=== PATIENT | female | born 1965 | race Caucasian/White ===

== ENCOUNTER 2019-07-09 08:46 | Emergency (ER) | payer MEDICAID ==
[~2019-07-09] VITALS: Ht 154.9 cm; Wt 78.9 kg
[~2019-07-09 08:46] MED LIST: BENA10TA25 PO; METF500T PO; RANI-287 PO; SIMV10TA1 PO
[2019-07-09 09:03] VITALS: BP 119/71
--- NOTE | 2019-07-09 09:13 | NUR ---
Note adileneone in EDM - 07/09/19 at 0915 by [email or web address] C/O R SIDED CHEST PAIN, RADIATING TO UPPER BACK, 06/07 X1 DAY. PT STATES HER SON GAVE HER A HUG YESTERDAY AND THINKS HE SQUEEZZED HER TOO HARD DUE TO HER OSTEOPOROSIS. DENIES N/V. PT NON-DIAPHORETIC. PT ALERT AND AWAKE. VS STABLE. AMBULATES WITH STEADY GAIT. BED IS DOWN, LOCKED, BED RAIL X 1, ERMD TO SEE PT. HX: FIBROMYALGIA, HYPOTHYROID, OSTEOPOROSIS
--- NOTE | 2019-07-09 09:22 | NUR ---
PT PRESENTS TO THE ED WITH C/O ABD PAIN AND DIARRHEA X 1 DAY. PT REPORTS PAIN FEELS LIKE CRAMPING AND RATES PAIN 1/10 AT THIS TIME. PT DENEIS N/V, BOWEL SOUNDS ACTIVE IN ALL QUADRANTS. PT REPORTS NO CP OR SOB AT THIS TIME. PT ALSO REPORTS DRY SPOTS ON MIDDLE OF BACK AND RIGHT ARM X 2 WEEKS THAT SHE WOULD LIKE THE MD TO EXAMINE. PT POSITIONED FOR COMFORT, BED RAIL UPX1. ER MD TO SEE PT. ALLERGY: DENIES HX: CANCER, DM, HTN RX: PT CANNOT RECALL NAMES OF MEDICATION.
--- NOTE | 2019-07-09 09:25 | NUR ---
Dr. Magallanes is evaluating the patient at bedside.
[2019-07-09] MEDS ORDERED: ONDANSETRON 4 MG ODT PO ONE (09:30)
--- NOTE | 2019-07-09 09:41 | NUR ---
certified veterinary technician at bedside.
[2019-07-09 10:42] VITALS: BP 114/74
== END 2019-07-09 10:44 | disposition home or self-care (01) ==
LOC: MED 08:46
DX: R19.7 Diarrhea, unspecified (principal); E11.9 Type 2 diabetes mellitus without complications; I10 Essential (primary) hypertension; Z79.899 Other long term (current) drug therapy; Z88.2 Allergy status to sulfonamides
CPT/HCPCS: 74018; 99283; Q0092; Q0162